=== PATIENT | male | born 1965 | race African-American/Black ===

== ENCOUNTER 2019-08-14 03:35 | Inpatient (IN) | payer MEDICAID ==
[~2019-08-14] VITALS: Ht 185.4 cm; Wt 92.5 kg
[2019-08-14] VITALS: BP 103/65
[2019-08-14] MEDS ORDERED: ONDANSETRON HCL 4MG/2ML INJ IV STA (04:09)
[2019-08-14 04:32] LABS: BASOPHILS % 2.9 % (0.0-2.0); EOSINOPHILS % 0.6 % (0.0-5.0); HEMATOCRIT. 42.6 % (42.0-52.0); HEMOGLOBIN. 14.4 g/dL (14.0-18.0); LYMPHOCYTES % 18.4 % (20.0-50.0); MEAN CORPUSCULAR HEMOGLOBIN 30.9 pg (28.0-32.0); MEAN CORPUSCULAR VOLUME 91.5 fL (80.0-94.0); MEAN PLATELET VOLUME 8.7 fl (7.4-10.4); NEUTROPHILS % 64.1 % (40.0-76.0); PLATELET 307 x1000/uL (130-400); RED BLOOD CELL COUNT 4.66 mill/uL (4.7-6.1); RED CELL DISTRIBUTION WIDTH 16.3 % (11.6-14.6)
[2019-08-14 04:38] LABS: CHLORIDE 97 mEq/L (98-107)
[2019-08-14 04:49] LABS: INR 1.4; PROTHROMBIN TIME 15.3 sec (9.6-11.0)
[2019-08-14 09:30] VITALS: BP 112/67
[2019-08-14] MEDS ORDERED: ONDANSETRON HCL 4MG/2ML INJ IV PRN (10:30)
[2019-08-14] MEDS ORDERED: ACETAMINOPHEN 325MG TABLET PO PRN (10:30)
[2019-08-14] MEDS ORDERED: ASPI-1497 MT (10:44)
[2019-08-14] MEDS ORDERED: COLC0.6C3 MT (10:44)
[2019-08-14] MEDS ORDERED: APIX5TAB MT (10:44)
[2019-08-14] MEDS ORDERED: FLUT200B INH (10:44)
[2019-08-14] MEDS ORDERED: LISI2.5T47 MT (10:44)
[2019-08-14] MEDS ORDERED: TIOT18CA3 IH (10:44)
[2019-08-14] MEDS ORDERED: HYDR453.3 TP (10:44)
[2019-08-14] MEDS ORDERED: MIDO10TA MT (10:44)
[2019-08-14] MEDS ORDERED: METO-396 MT (10:44)
[2019-08-14] MEDS ORDERED: DIPH25CA83 PO (10:44)
[2019-08-14] MEDS ORDERED: FURO40TA5 PO (10:44)
[2019-08-14] MEDS ORDERED: FAMO20TA8 PO (10:44)
[2019-08-14] MEDS ORDERED: ATOR20TA65 MT (10:44)
[2019-08-14] MEDS ORDERED: AMIO100T4 PO (10:44)
[2019-08-14] MEDS ORDERED: MIDO10TA PO (10:44)
[2019-08-14 12:00] VITALS: BP 118/84
[2019-08-14] MEDS: FUROSEMIDE 40MG/4ML VIAL IVP SCH ×2 (13:11→17:06)
[2019-08-14] MEDS: HYDROCODONE/ACETAMINOPHEN 5/325MG TABLET PO PRN ×2 (13:12→22:29)
[2019-08-14 16:00] VITALS: BP 121/73
[2019-08-14] MEDS: ENOXAPARIN 100MG/ML SYR SUBCUT SCH (17:06)
[2019-08-14 20:00] VITALS: BP 109/73
[2019-08-14] MEDS: CARVEDILOL 3.125 MG TABLET PO SCH (21:00)
[2019-08-15] VITALS: BP 103/65
[2019-08-15] MEDS: ENOXAPARIN 100MG/ML SYR SUBCUT SCH ×2 (02:26→14:23)
[2019-08-15 04:00] VITALS: BP 114/86
[2019-08-15 07:12] LABS: HEMATOCRIT. 36.8 % (42.0-52.0); HEMOGLOBIN. 12.3 g/dL (14.0-18.0); MEAN CORPUSCULAR HEMOGLOBIN 30.4 pg (28.0-32.0); MEAN PLATELET VOLUME 8.2 fl (7.4-10.4); PLATELET 236 x1000/uL (130-400); RED BLOOD CELL COUNT 4.04 mill/uL (4.7-6.1); RED CELL DISTRIBUTION WIDTH 16.2 % (11.6-14.6)
[2019-08-15] MEDS: FUROSEMIDE 40MG/4ML VIAL IVP SCH ×2 (09:26→17:02)
[2019-08-15] MEDS: CARVEDILOL 3.125 MG TABLET PO SCH ×2 (09:27→21:35)
[2019-08-15] MEDS: HYDROCODONE/ACETAMINOPHEN 5/325MG TABLET PO PRN (11:22)
[2019-08-15 12:00] VITALS: BP 102/69
[2019-08-15 13:34] LABS: PLATELET ESTIMATE NORMAL
[2019-08-15] MEDS: DIPHENHYDRAMINE 25MG CAPSULE PO PRN ×2 (14:23→22:54)
[2019-08-15 16:00] VITALS: BP 93/66
[2019-08-15 18:46] LABS: *AMPHETAMINES SCREEN URINE NEGATIVE (NEGATIVE); *BARBITURATES SCREEN URINE NEGATIVE (NEGATIVE)
[2019-08-15 18:48] LABS: *BENZODIAZEPINES SCREEN URINE NEGATIVE (NEGATIVE); *COCAINE SCREEN URINE NEGATIVE (NEGATIVE); CANNABINOID URINE SCREEN NEGATIVE (NEGATIVE); METHADONE URINE SCREEN NEGATIVE (NEGATIVE); OPIATES URINE SCREEN PRESUMTIVE POSITIVE (NEGATIVE); PHENCYCLIDINE URINE SCREEN NEGATIVE (NEGATIVE)
[2019-08-15 20:00] VITALS: BP 111/79
[2019-08-15] MEDS: ATORVASTATIN CALCIUM 20MG TABLET PO SCH (21:35)
[2019-08-16] VITALS: BP 102/69
[2019-08-16] MEDS: ENOXAPARIN 100MG/ML SYR SUBCUT SCH ×2 (02:15→14:28)
[2019-08-16] MEDS: IPRATROPIUM/ALBUTEROL 0.5-3(2.5)MG/3ML NEB HHN PRN (03:21)
[2019-08-16 04:00] VITALS: BP 107/74
[2019-08-16] MEDS: LEVOTHYROXINE SODIUM 50MCG TABLET PO SCH (05:48)
[2019-08-16 08:00] VITALS: BP 109/75
[2019-08-16] MEDS: CARVEDILOL 3.125 MG TABLET PO SCH ×2 (09:00→21:00)
[2019-08-16] MEDS: FUROSEMIDE 40MG/4ML VIAL IVP SCH ×3 (09:28→17:12)
[2019-08-16 12:00] VITALS: BP 109/82
[2019-08-16 16:00] VITALS: BP 106/81
[2019-08-16 20:00] VITALS: BP 117/82
[2019-08-16] MEDS: ATORVASTATIN CALCIUM 20MG TABLET PO SCH (21:00)
[2019-08-16] MEDS: HYDROCODONE/ACETAMINOPHEN 5/325MG TABLET PO PRN (21:00)
[2019-08-17] VITALS: BP 105/70
[2019-08-17] MEDS: DIPHENHYDRAMINE 25MG CAPSULE PO PRN ×2 (00:13→18:58)
[2019-08-17] MEDS: ENOXAPARIN 100MG/ML SYR SUBCUT SCH ×2 (02:30→13:19)
[2019-08-17] MEDS: IPRATROPIUM/ALBUTEROL 0.5-3(2.5)MG/3ML NEB HHN PRN ×3 (03:13→18:27)
[2019-08-17 04:00] VITALS: BP 102/78
[2019-08-17] MEDS: LEVOTHYROXINE SODIUM 50MCG TABLET PO SCH (06:50)
[2019-08-17 08:00] VITALS: BP 108/81
[2019-08-17] MEDS: FUROSEMIDE 40MG/4ML VIAL IVP SCH (08:55)
[2019-08-17] MEDS: CARVEDILOL 3.125 MG TABLET PO SCH ×2 (08:56→21:55)
[2019-08-17 09:09] LABS: ANGIOTENSION CONVERTING ENZYME 10 U/L (14-82)
[2019-08-17 10:09] LABS: ANTI-MYELOPEROXIDASE AB < 9.0 U/mL (0.0-9.0); ANTI-PROTEINASE 3 ABS < 3.5 U/mL (0.0-3.5)
[2019-08-17 12:00] VITALS: BP 98/63
[2019-08-17 13:06] LABS: ATYPICAL P-ANCA <1:20 titer (Neg:<1:20); CYTOPLASMIC C-ANCA <1:20 titer (Neg:<1:20); PERINUCLEAR P-ANCA <1:20 titer (Neg:<1:20)
[2019-08-17] MEDS: POTASSIUM CHLORIDE 20MEQ TABLET SR PO SCH ×2 (13:17→17:51)
[2019-08-17] MEDS: METOLAZONE 5MG TABLET PO SCH ×2 (13:17→17:51)
[2019-08-17] MEDS: FUROSEMIDE 100MG/10ML VIAL IVP SCH ×2 (14:34→18:52)
[2019-08-17 16:00] VITALS: BP 159/75
[2019-08-17 20:00] VITALS: BP 120/76
[2019-08-17] MEDS: ATORVASTATIN CALCIUM 20MG TABLET PO SCH (21:55)
[2019-08-18] VITALS: BP 97/56
[2019-08-18] MEDS: ENOXAPARIN 100MG/ML SYR SUBCUT SCH (02:26)
[2019-08-18 04:00] VITALS: BP 110/70
[2019-08-18] MEDS: LEVOTHYROXINE SODIUM 50MCG TABLET PO SCH (06:52)
[2019-08-18] MEDS: HYDROCODONE/ACETAMINOPHEN 5/325MG TABLET PO PRN ×2 (06:53→20:28)
[2019-08-18 08:00] VITALS: BP 111/80
[2019-08-18] MEDS: FUROSEMIDE 100MG/10ML VIAL IVP SCH ×2 (08:55→16:30)
[2019-08-18] MEDS: METOLAZONE 5MG TABLET PO SCH (08:59)
[2019-08-18] MEDS: CARVEDILOL 3.125 MG TABLET PO SCH (08:59)
[2019-08-18] MEDS: POTASSIUM CHLORIDE 20MEQ TABLET SR PO SCH ×2 (08:59→16:30)
[2019-08-18 12:00] VITALS: BP 105/83
[2019-08-18 16:00] VITALS: BP 101/71
[2019-08-18] MEDS: DIPHENHYDRAMINE 25MG CAPSULE PO PRN (16:41)
[2019-08-18 20:00] VITALS: BP 99/73
[2019-08-18] MEDS: ATORVASTATIN CALCIUM 20MG TABLET PO SCH (20:28)
[2019-08-18] MEDS: CARVEDILOL 6.25 MG TABLET PO SCH (20:29)
[2019-08-18] MEDS: IPRATROPIUM/ALBUTEROL 0.5-3(2.5)MG/3ML NEB HHN PRN (23:04)
[2019-08-19] VITALS: BP 94/62
[2019-08-19 04:00] VITALS: BP 115/65
[2019-08-19] MEDS: HYDROCODONE/ACETAMINOPHEN 5/325MG TABLET PO PRN (04:13)
[2019-08-19] MEDS: FUROSEMIDE 100MG/10ML VIAL IVP SCH ×2 (06:35→18:13)
[2019-08-19] MEDS: LEVOTHYROXINE SODIUM 50MCG TABLET PO SCH (06:35)
[2019-08-19] MEDS: METOLAZONE 5MG TABLET PO SCH (06:35)
[2019-08-19 06:39] LABS: HEMOGLOBIN. 12.7 g/dL (14.0-18.0); MEAN CORPUSCULAR HEMOGLOBIN 30.6 pg (28.0-32.0); MEAN CORPUSCULAR VOLUME 88.9 fL (80.0-94.0); MEAN PLATELET VOLUME 8.2 fl (7.4-10.4); PLATELET 208 x1000/uL (130-400); RED BLOOD CELL COUNT 4.16 mill/uL (4.7-6.1); RED CELL DISTRIBUTION WIDTH 16.3 % (11.6-14.6)
[2019-08-19 07:02] LABS: CHLORIDE 93 mEq/L (98-107)
[2019-08-19 08:00] VITALS: BP 112/68
[2019-08-19] MEDS ORDERED: SODIUM BICARBONATE 4% (2.4MEQ) 5ML VIAL IV ONE (08:25)
[2019-08-19] MEDS: POTASSIUM CHLORIDE 20MEQ TABLET SR PO SCH ×2 (09:59→18:13)
[2019-08-19] MEDS: CARVEDILOL 6.25 MG TABLET PO SCH ×2 (10:00→20:36)
[2019-08-19 12:00] VITALS: BP 116/71
[2019-08-19 20:00] VITALS: BP 96/73
[2019-08-19] MEDS ORDERED: HYDROCODONE/ACETAMINOPHEN 5/325MG TABLET PO PRN (20:30)
[2019-08-19] MEDS: ATORVASTATIN CALCIUM 20MG TABLET PO SCH (20:31)
[2019-08-19] MEDS: DIPHENHYDRAMINE 25MG CAPSULE PO PRN (22:58)
[2019-08-19 23:20] LABS: PLATELET ESTIMATE NORMAL
[2019-08-20] VITALS (7 sets, daily range): BP systolic 90–112; BP diastolic 62–77
[2019-08-20] MEDS: IPRATROPIUM/ALBUTEROL 0.5-3(2.5)MG/3ML NEB HHN PRN (02:57)
[2019-08-20] MEDS: METOLAZONE 5MG TABLET PO SCH (06:19)
[2019-08-20] MEDS: LEVOTHYROXINE SODIUM 50MCG TABLET PO SCH (06:19)
[2019-08-20] MEDS: FUROSEMIDE 100MG/10ML VIAL IVP SCH (06:20)
[2019-08-20 07:11] LABS: BASOPHILS % 1.2 % (0.0-2.0); EOSINOPHILS % 1.4 % (0.0-5.0); HEMATOCRIT. 38.5 % (42.0-52.0); LYMPHOCYTES % 28.1 % (20.0-50.0); MEAN CORPUSCULAR HEMOGLOBIN 30.5 pg (28.0-32.0); MEAN CORPUSCULAR VOLUME 90.1 fL (80.0-94.0); MEAN PLATELET VOLUME 8.1 fl (7.4-10.4); MONOCYTES % 9.6 % (2.0-8.0); NEUTROPHILS % 59.7 % (40.0-76.0); PLATELET 185 x1000/uL (130-400); RED BLOOD CELL COUNT 4.28 mill/uL (4.7-6.1); RED CELL DISTRIBUTION WIDTH 16.6 % (11.6-14.6)
[2019-08-20] MEDS: POTASSIUM CHLORIDE 20MEQ TABLET SR PO SCH ×2 (08:57→17:33)
[2019-08-20] MEDS: CARVEDILOL 6.25 MG TABLET PO SCH (08:58)
[2019-08-20] MEDS ORDERED: AMIODARONE HCL 200 MG TABLET PO SCH (10:36)
[2019-08-20] MEDS ORDERED: CARVEDILOL 3.125 MG TABLET PO SCH (17:00)
[2019-08-20] MEDS ORDERED: FUROSEMIDE 40MG/4ML VIAL IVP SCH (17:15)
[2019-08-21] MEDS ORDERED: LOSARTAN POTASSIUM 50 MG TABLET PO SCH (09:00)
== END 2019-08-20 18:10 | disposition home health service (06) | DRG 194 ==
LOC: ER 03:35 → 5WST 05:13 → EDBEDREQTM 05:15 → EDBEDREQ 05:15 → ENRESERV 08:04
PROVIDERS: ADMIT Internal Medicine; ATTEND Internal Medicine
PROC: 0W993ZZ Drainage of Right Pleural Cavity, Percutaneous Approach (ICD-10-PCS; principal; 2019-08-19)
DX: I13.0 Hypertensive heart and chronic kidney disease with heart failure and stage 1 through stage 4 chronic kidney disease, or unspecified chronic kidney disease (principal); J96.00 Acute respiratory failure, unspecified whether with hypoxia or hypercapnia; I47.2 Ventricular tachycardia; D70.9 Neutropenia, unspecified; I27.29 Other secondary pulmonary hypertension; E44.1 Mild protein-calorie malnutrition; J91.8 Pleural effusion in other conditions classified elsewhere; E87.1 Hypo-osmolality and hyponatremia; I50.23 Acute on chronic systolic (congestive) heart failure; E87.8 Other disorders of electrolyte and fluid balance, not elsewhere classified; E78.5 Hyperlipidemia, unspecified; K76.1 Chronic passive congestion of liver; E03.9 Hypothyroidism, unspecified; I25.5 Ischemic cardiomyopathy; I34.0 Nonrheumatic mitral (valve) insufficiency; M10.9 Gout, unspecified; Z96.652 Presence of left artificial knee joint; J98.11 Atelectasis; F14.90 Cocaine use, unspecified, uncomplicated; I49.9 Cardiac arrhythmia, unspecified; J44.9 Chronic obstructive pulmonary disease, unspecified; N18.9 Chronic kidney disease, unspecified; Z86.711 Personal history of pulmonary embolism; Z79.01 Long term (current) use of anticoagulants; Z87.891 Personal history of nicotine dependence; Z90.49 Acquired absence of other specified parts of digestive tract; Z68.26 Body mass index [BMI] 26.0-26.9, adult; Z88.0 Allergy status to penicillin; Z71.51 Drug abuse counseling and surveillance of drug abuser
CPT/HCPCS: 32555; 36415; 71045; 80048; 80053; 80061; 80305; 82040; 82164; 83520; 83615; 83880; 84443; 84484; 85025; 85651; 86140; 86256; 93005; 93306; 99291; J1650; J1940; J2405; J3490; Q0163

== ENCOUNTER 2019-09-26 00:36 | Inpatient (IN) | payer MEDICAID ==
[~2019-09-26] VITALS: Ht 185.4 cm; Wt 88.5 kg
[~2019-09-26 00:36] MED LIST: AMIO100T4 PO; APIX5TAB MT; ASPI-1497 MT; ATOR20TA65 MT; DIPH25CA83 PO; FAMO20TA8 PO; FLUT200B INH; FURO40TA5 PO; HYDR453.3 TP; TIOT18CA3 IH
[2019-09-26] MEDS ORDERED: FUROSEMIDE 40MG TABLET PO ONE (02:15)
[2019-09-26 02:32] LABS: CHLORIDE 98 mEq/L (98-107)
[2019-09-26 02:42] LABS: BASOPHILS % 1.2 % (0.0-2.0); EOSINOPHILS % 1.3 % (0.0-5.0); HEMATOCRIT. 39.4 % (42.0-52.0); HEMOGLOBIN. 13.3 g/dL (14.0-18.0); LYMPHOCYTES % 20.1 % (20.0-50.0); MEAN CORPUSCULAR HEMOGLOBIN 30.3 pg (28.0-32.0); MEAN CORPUSCULAR VOLUME 89.8 fL (80.0-94.0); MEAN PLATELET VOLUME 8.1 fl (7.4-10.4); MONOCYTES % 12.9 % (2.0-8.0); NEUTROPHILS % 64.5 % (40.0-76.0); PLATELET 216 x1000/uL (130-400); RED BLOOD CELL COUNT 4.39 mill/uL (4.7-6.1)
[2019-09-26] MEDS ORDERED: ONDANSETRON HCL 4MG/2ML INJ IV PRN (11:15)
[2019-09-26] MEDS: ACETAMINOPHEN 325MG TABLET PO PRN ×2 (13:59→20:55)
[2019-09-26 15:40] VITALS: BP 116/91
[2019-09-26 15:47] VITALS: BP 116/91
[2019-09-26] MEDS: ENOXAPARIN 80MG/0.8ML SYR SUBCUT SCH (16:42)
[2019-09-26] MEDS ORDERED: IPRATROPIUM/ALBUTEROL 0.5-3(2.5)MG/3ML NEB HHN PRN (16:45)
[2019-09-26] MEDS: FUROSEMIDE 40MG/4ML VIAL IVP SCH (17:13)
[2019-09-26 19:18] LABS: *AMPHETAMINES SCREEN URINE NEGATIVE (NEGATIVE); *BARBITURATES SCREEN URINE NEGATIVE (NEGATIVE); *BENZODIAZEPINES SCREEN URINE NEGATIVE (NEGATIVE); *COCAINE SCREEN URINE PRESUMTIVE POSITIVE (NEGATIVE); METHADONE URINE SCREEN NEGATIVE (NEGATIVE)
[2019-09-26 19:19] LABS: CANNABINOID URINE SCREEN NEGATIVE (NEGATIVE); OPIATES URINE SCREEN NEGATIVE (NEGATIVE); PHENCYCLIDINE URINE SCREEN NEGATIVE (NEGATIVE)
[2019-09-26 20:00] VITALS: BP 108/82
[2019-09-26] MEDS: CARVEDILOL 3.125 MG TABLET PO SCH (21:00)
[2019-09-26] MEDS: BUDESONIDE 0.5MG/2ML NEB HHN SCH (23:53)
[2019-09-26] MEDS: IPRATROPIUM/ALBUTEROL 0.5-3(2.5)MG/3ML NEB HHN SCH (23:54)
[2019-09-27] VITALS: BP 115/81
[2019-09-27 04:00] VITALS: BP 120/90
[2019-09-27] MEDS: ENOXAPARIN 80MG/0.8ML SYR SUBCUT SCH ×2 (06:00→17:44)
[2019-09-27 06:05] LABS: INR 1.2; PROTHROMBIN TIME 12.9 sec (9.6-11.0)
[2019-09-27] MEDS: ACETAMINOPHEN 325MG TABLET PO PRN ×2 (06:34→09:05)
[2019-09-27 06:43] LABS: BASOPHILS % 1.8 % (0.0-2.0); EOSINOPHILS % 1.4 % (0.0-5.0); HEMATOCRIT. 39.9 % (42.0-52.0); HEMOGLOBIN. 13.4 g/dL (14.0-18.0); LYMPHOCYTES % 21.3 % (20.0-50.0); MEAN CORPUSCULAR HEMOGLOBIN 30.3 pg (28.0-32.0); MEAN CORPUSCULAR VOLUME 90.5 fL (80.0-94.0); MEAN PLATELET VOLUME 8.4 fl (7.4-10.4); MONOCYTES % 11.2 % (2.0-8.0); NEUTROPHILS % 64.3 % (40.0-76.0); PLATELET 206 x1000/uL (130-400); RED BLOOD CELL COUNT 4.41 mill/uL (4.7-6.1); RED CELL DISTRIBUTION WIDTH 20.2 % (11.6-14.6)
[2019-09-27] MEDS: FUROSEMIDE 40MG/4ML VIAL IVP SCH ×2 (07:05→17:43)
[2019-09-27] MEDS: LEVOTHYROXINE SODIUM 50MCG TABLET PO SCH (07:06)
[2019-09-27] MEDS: BUDESONIDE 0.5MG/2ML NEB HHN SCH ×3 (07:45→20:29)
[2019-09-27] MEDS: IPRATROPIUM/ALBUTEROL 0.5-3(2.5)MG/3ML NEB HHN SCH ×4 (07:45→20:29)
[2019-09-27 08:00] VITALS: BP 115/83
[2019-09-27] MEDS: LOSARTAN POTASSIUM 50 MG TABLET PO SCH (08:44)
[2019-09-27] MEDS: CARVEDILOL 3.125 MG TABLET PO SCH (08:44)
[2019-09-27 12:00] VITALS: BP 114/82
[2019-09-27] MEDS: AMLODIPINE 2.5MG TABLET PO SCH (13:30)
[2019-09-27 16:00] VITALS: BP 116/87
[2019-09-27 20:00] VITALS: BP 94/68
[2019-09-28] VITALS: BP 99/65
[2019-09-28] MEDS: HYDROCODONE/ACETAMINOPHEN 5/325MG TABLET PO PRN ×3 (00:37→15:04)
[2019-09-28] MEDS: IPRATROPIUM/ALBUTEROL 0.5-3(2.5)MG/3ML NEB HHN SCH ×3 (02:14→20:34)
[2019-09-28 04:00] VITALS: BP 119/87
[2019-09-28] MEDS: FUROSEMIDE 40MG/4ML VIAL IVP SCH ×2 (06:28→17:11)
[2019-09-28] MEDS: LEVOTHYROXINE SODIUM 50MCG TABLET PO SCH (06:28)
[2019-09-28] MEDS: ENOXAPARIN 80MG/0.8ML SYR SUBCUT SCH ×2 (06:29→17:11)
[2019-09-28 08:17] LABS: BASOPHILS % 1.8 % (0.0-2.0); EOSINOPHILS % 1.4 % (0.0-5.0); HEMATOCRIT. 37.8 % (42.0-52.0); HEMOGLOBIN. 12.7 g/dL (14.0-18.0); LYMPHOCYTES % 21.1 % (20.0-50.0); MEAN CORPUSCULAR HEMOGLOBIN 30.4 pg (28.0-32.0); MEAN CORPUSCULAR VOLUME 90.7 fL (80.0-94.0); MEAN PLATELET VOLUME 8.4 fl (7.4-10.4); MONOCYTES % 13.1 % (2.0-8.0); NEUTROPHILS % 62.6 % (40.0-76.0); PLATELET 192 x1000/uL (130-400); RED BLOOD CELL COUNT 4.17 mill/uL (4.7-6.1); RED CELL DISTRIBUTION WIDTH 19.7 % (11.6-14.6)
[2019-09-28] MEDS: LOSARTAN POTASSIUM 50 MG TABLET PO SCH (08:29)
[2019-09-28] MEDS: AMLODIPINE 2.5MG TABLET PO SCH (08:29)
[2019-09-28 08:30] VITALS: BP 106/70
[2019-09-28] MEDS: BUDESONIDE 0.5MG/2ML NEB HHN SCH (08:41)
[2019-09-28 12:30] VITALS: BP 104/66
[2019-09-28 16:22] VITALS: BP 108/70
[2019-09-28 20:00] VITALS: BP 110/85
[2019-09-29] VITALS (7 sets, daily range): BP systolic 99–121; BP diastolic 73–90
[2019-09-29] MEDS: IPRATROPIUM/ALBUTEROL 0.5-3(2.5)MG/3ML NEB HHN SCH ×4 (02:21→20:47)
[2019-09-29] MEDS: ENOXAPARIN 80MG/0.8ML SYR SUBCUT SCH ×2 (06:00→17:45)
[2019-09-29] MEDS: ACETAMINOPHEN 325MG TABLET PO PRN (07:48)
[2019-09-29] MEDS: LEVOTHYROXINE SODIUM 50MCG TABLET PO SCH (07:48)
[2019-09-29] MEDS: FUROSEMIDE 40MG/4ML VIAL IVP SCH ×2 (07:48→17:42)
[2019-09-29] MEDS: AMLODIPINE 2.5MG TABLET PO SCH (08:37)
[2019-09-29] MEDS: LOSARTAN POTASSIUM 50 MG TABLET PO SCH (08:37)
[2019-09-29] MEDS: BUDESONIDE 0.5MG/2ML NEB HHN SCH (09:10)
[2019-09-30] VITALS (7 sets, daily range): BP systolic 98–111; BP diastolic 71–83
[2019-09-30] MEDS: HYDROCODONE/ACETAMINOPHEN 5/325MG TABLET PO PRN ×3 (02:19→21:23)
[2019-09-30] MEDS: IPRATROPIUM/ALBUTEROL 0.5-3(2.5)MG/3ML NEB HHN SCH ×4 (02:45→21:05)
[2019-09-30] MEDS: ENOXAPARIN 80MG/0.8ML SYR SUBCUT SCH ×2 (05:05→18:05)
[2019-09-30] MEDS: LEVOTHYROXINE SODIUM 50MCG TABLET PO SCH (06:13)
[2019-09-30] MEDS: FUROSEMIDE 40MG/4ML VIAL IVP SCH ×2 (06:15→18:05)
[2019-09-30] MEDS: AMLODIPINE 2.5MG TABLET PO SCH (09:00)
[2019-09-30] MEDS: LOSARTAN POTASSIUM 50 MG TABLET PO SCH (09:00)
[2019-10-01] VITALS: BP 114/82
[2019-10-01] MEDS: IPRATROPIUM/ALBUTEROL 0.5-3(2.5)MG/3ML NEB HHN SCH ×4 (02:33→21:05)
[2019-10-01 04:05] VITALS: BP 106/80
[2019-10-01] MEDS: LEVOTHYROXINE SODIUM 50MCG TABLET PO SCH (06:16)
[2019-10-01] MEDS: FUROSEMIDE 40MG/4ML VIAL IVP SCH ×2 (06:16→16:50)
[2019-10-01] MEDS: ENOXAPARIN 80MG/0.8ML SYR SUBCUT SCH (06:16)
[2019-10-01 08:00] VITALS: BP 120/87
[2019-10-01] MEDS: LOSARTAN POTASSIUM 50 MG TABLET PO SCH (09:40)
[2019-10-01] MEDS: AMLODIPINE 2.5MG TABLET PO SCH (09:40)
[2019-10-01] MEDS: APIXABAN 5 MG TABLET PO SCH ×3 (11:30→16:50)
[2019-10-01 12:00] VITALS: BP 106/76
[2019-10-01 16:00] VITALS: BP 97/64
[2019-10-01] MEDS: LIDOCAINE 5% PATCH TOP SCH (18:10)
[2019-10-01 19:50] VITALS: BP 95/73
[2019-10-02 00:15] VITALS: BP 105/74
[2019-10-02] MEDS: IPRATROPIUM/ALBUTEROL 0.5-3(2.5)MG/3ML NEB HHN SCH ×3 (01:35→14:38)
[2019-10-02 04:00] VITALS: BP 107/80
[2019-10-02] MEDS: LEVOTHYROXINE SODIUM 50MCG TABLET PO SCH (07:04)
[2019-10-02] MEDS: FUROSEMIDE 40MG/4ML VIAL IVP SCH (07:04)
[2019-10-02 07:10] LABS: BASOPHILS % 1.8 % (0.0-2.0); EOSINOPHILS % 2.9 % (0.0-5.0); HEMATOCRIT. 35.9 % (42.0-52.0); HEMOGLOBIN. 12.2 g/dL (14.0-18.0); LYMPHOCYTES % 24.5 % (20.0-50.0); MEAN CORPUSCULAR HEMOGLOBIN 30.7 pg (28.0-32.0); MEAN CORPUSCULAR VOLUME 90.5 fL (80.0-94.0); MEAN PLATELET VOLUME 9.1 fl (7.4-10.4); MONOCYTES % 12.1 % (2.0-8.0); NEUTROPHILS % 58.7 % (40.0-76.0); PLATELET 155 x1000/uL (130-400); RED BLOOD CELL COUNT 3.96 mill/uL (4.7-6.1); RED CELL DISTRIBUTION WIDTH 20.6 % (11.6-14.6)
[2019-10-02 08:00] VITALS: BP 92/62
[2019-10-02] MEDS: AMLODIPINE 2.5MG TABLET PO SCH ×2 (08:59→09:00)
[2019-10-02] MEDS: APIXABAN 5 MG TABLET PO SCH (08:59)
[2019-10-02] MEDS: LOSARTAN POTASSIUM 50 MG TABLET PO SCH ×2 (08:59→09:00)
[2019-10-02] MEDS: LIDOCAINE 5% PATCH TOP SCH (09:00)
[2019-10-02] MEDS: HYDROCODONE/ACETAMINOPHEN 5/325MG TABLET PO PRN (09:03)
[2019-10-02] MEDS ORDERED: FUROSEMIDE 40MG/4ML VIAL IVP SCH (11:30)
[2019-10-02 12:00] VITALS: BP 107/77
[2019-10-02] MEDS ORDERED: AMIODARONE HCL 200 MG TABLET PO SCH (12:00)
[2019-10-02] MEDS ORDERED: AMI2 PO (12:08)
[2019-10-02] MEDS ORDERED: LOSA25TA26 MT (12:08)
[2019-10-02] MEDS ORDERED: COR3 PO (12:08)
[2019-10-02] MEDS ORDERED: FLUT200B INH (12:08)
[2019-10-02] MEDS ORDERED: APIX5TAB MT (12:08)
[2019-10-02] MEDS ORDERED: FURO40TA5 PO (12:08)
[2019-10-02] MEDS ORDERED: LEVO50TA8 PO (12:08)
[2019-10-02] MEDS ORDERED: HYDR-4009 MT (12:09)
[2019-10-02] MEDS ORDERED: HYDROCODONE/ACETAMINOPHEN 5/325MG TABLET PO PRN (12:15)
[2019-10-02 14:13] VITALS: BP 105/70
[2019-10-02] MEDS ORDERED: CARVEDILOL 3.125 MG TABLET PO SCH (21:00)
== END 2019-10-02 16:20 | disposition home or self-care (01) | DRG 194 ==
LOC: ER 01:07 → MICUSO 02:36 → EDBEDREQ 02:46 → 5WST 15:35
PROVIDERS: ADMIT Internal Medicine; ATTEND Internal Medicine
PROC: 0W993ZZ Drainage of Right Pleural Cavity, Percutaneous Approach (ICD-10-PCS; principal; 2019-09-30)
DX: I13.0 Hypertensive heart and chronic kidney disease with heart failure and stage 1 through stage 4 chronic kidney disease, or unspecified chronic kidney disease (principal); J96.00 Acute respiratory failure, unspecified whether with hypoxia or hypercapnia; I47.2 Ventricular tachycardia; N17.9 Acute kidney failure, unspecified; I50.82 Biventricular heart failure; I50.23 Acute on chronic systolic (congestive) heart failure; I27.21 Secondary pulmonary arterial hypertension; E87.1 Hypo-osmolality and hyponatremia; I42.9 Cardiomyopathy, unspecified; J44.9 Chronic obstructive pulmonary disease, unspecified; E78.5 Hyperlipidemia, unspecified; D64.9 Anemia, unspecified; N18.9 Chronic kidney disease, unspecified; E03.9 Hypothyroidism, unspecified; I45.10 Unspecified right bundle-branch block; I44.0 Atrioventricular block, first degree; F14.90 Cocaine use, unspecified, uncomplicated; D72.819 Decreased white blood cell count, unspecified; E78.00 Pure hypercholesterolemia, unspecified; F17.200 Nicotine dependence, unspecified, uncomplicated; Z96.659 Presence of unspecified artificial knee joint; J90 Pleural effusion, not elsewhere classified; M10.9 Gout, unspecified; E11.22 Type 2 diabetes mellitus with diabetic chronic kidney disease; I34.0 Nonrheumatic mitral (valve) insufficiency; Z79.01 Long term (current) use of anticoagulants; Z86.711 Personal history of pulmonary embolism; Z88.6 Allergy status to analgesic agent; Z79.82 Long term (current) use of aspirin; Z79.899 Other long term (current) drug therapy; Z79.84 Long term (current) use of oral hypoglycemic drugs; Z90.49 Acquired absence of other specified parts of digestive tract; Z71.51 Drug abuse counseling and surveillance of drug abuser
CPT/HCPCS: 32555; 36415; 71045; 73030; 73221; 76604; 80048; 80053; 80076; 80305; 83735; 83880; 85025; 93005; 94640; 97110; 97116; 97162; 99285; J1650; J1940; J2405; J7626